=== PATIENT | female | born 1955 | race Two or more races ===

== ENCOUNTER 2021-12-13 15:23 | Emergency (ER) | payer MEDICARE, OTHER ==
[~2021-12-13] VITALS: Ht 154.9 cm; Wt 60.3 kg
--- NOTE | 2021-12-13 15:32 | NUR ---
PT BIBRA FROM AN URGENT CARE S/P LAB TEST AND WITH AN ABNORMAL PLT COUNT. PT DENIES PAIN/BLEEDING AND DISCOMFORT. STABLE VITALS. AWAITING MD GARZON.
[2021-12-13] MEDS ORDERED: LORA-259 PO (15:40)
[2021-12-13] MEDS ORDERED: LISI10TA29 PO (15:40)
--- NOTE | 2021-12-13 15:41 | NUR ---
DR EDOUARD AT BEDSIDE FOR EVAL
--- NOTE | 2021-12-13 16:05 | NUR ---
DIRECTOR OF PLACEMENT AT BEDSIDE FOR BLOOD DRAW.
[2021-12-13 16:22] LABS: BASOPHILS % (AUTO) 0.6 % (0.0-2.0); EOSINOPHILS % (AUTO) 3.3 % (0.0-6.0); HEMATOCRIT 38 % (33-45); HEMOGLOBIN 12.7 g/dL (11.5-14.8); LYMPHOCYTES # (AUTO) 1.1 K/uL (0.8-4.8); LYMPHOCYTES % (AUTO) 30.8 % (20.0-44.0); MEAN CORPUSCULAR HGB CONC 33 g/dl (31.0-36.0); MEAN CORPUSCULAR VOLUME 98 fL (82-100); MONOCYTES # (AUTO) 0.4 K/uL (0.1-1.30); MONOCYTES % (AUTO) 11.2 % (2.0-12.0); NEUTROPHILS # (AUTO) 1.9 K/uL (1.8-8.9); NEUTROPHILS % (AUTO) 54.1 % (43.0-81.0); PLATELET COUNT (AUTO) 75 K/uL (150-450); WHITE BLOOD COUNT (AUTO) 3.5 K/uL (4.3-11.0)
[2021-12-13 16:29] LABS: CALCIUM, SERUM 8.3 mg/dL (8.5-10.1); CREATININE 0.8 mg/dL (0.6-1.3); POTASSIUM 3.7 mmol/L (3.5-5.1)
[2021-12-13 17:14] LABS: BAND % (MANUAL) 1 % (0.0-5.0); EOSINOPHILS % (MANUAL) 1 % (0-4); LYMPHOCYTES % (MANUAL) 31 % (16-48); MONOCYTES % (MANUAL) 4 % (0-11.0); NEUTROPHILS % (MANUAL) 63 (42-76)
[2021-12-13] MEDS ORDERED: HYDROCODONE/APAP 5/325MG TABLET ONE (18:33)
[2021-12-13] MEDS: HYDROCODONE/APAP 5/325MG TABLET PO ONE (18:34)
[2021-12-13 19:00] VITALS: BP 128/77
--- NOTE | 2021-12-13 19:00 | NUR ---
Patient discharged to home in stable condition. Written and verbal after care instructions given. Patient verbalizes understanding of instruction.
== END 2021-12-13 19:25 | disposition home or self-care (01) ==
LOC: ER 19:16
DX: D69.6 Thrombocytopenia, unspecified (principal); G89.29 Other chronic pain; M54.50 Low back pain, unspecified; I10 Essential (primary) hypertension; Z79.899 Other long term (current) drug therapy
CPT/HCPCS: 36415; 80048-TC; 85025-TC; 85730-TC

== ENCOUNTER 2022-03-05 11:05 | Emergency (ER) | payer MEDICARE, OTHER ==
[~2022-03-05] VITALS: Ht 154.9 cm; Wt 59.0 kg
[~2022-03-05 11:05] MED LIST: LISI10TA29 PO; LORA-259 PO
--- NOTE | 2022-03-05 11:15 | NUR ---
[id number] FROM [facility] C/O ABDOMINAL PAIN P/S 10/12 X2DAYS +DIARRHEA, -NAUSEA AND VOMITING. PLACED ON BED, AAOX4, BREATHING EVEN AND UNLABORED.
[2022-03-05] MEDS ORDERED: HYDROCODONE/APAP 5/325MG TABLET PO ONE (11:30)
[2022-03-05] MEDS ORDERED: SULF1TAB48 PO (11:34)
[2022-03-05] MEDS ORDERED: HYDROCODONE/APAP 5/325MG TABLET ONE (11:54)
--- NOTE | 2022-03-05 12:55 | NUR ---
Patient discharged to home in stable condition. Written and verbal after care instructions given. Patient verbalizes understanding of instruction.
[2022-03-05 12:56] VITALS: BP 115/65
== END 2022-03-05 12:55 | disposition home or self-care (01) ==
LOC: ER 11:47
DX: N39.0 Urinary tract infection, site not specified (principal); I10 Essential (primary) hypertension; Z79.899 Other long term (current) drug therapy

== ENCOUNTER 2024-02-17 09:17 | Inpatient (IN) | payer MEDICARE, OTHER ==
[~2024-02-17] VITALS: Ht 157.5 cm; Wt 60.0 kg
[2024-02-17] VITALS (19 sets, daily range): BP systolic 107–142; BP diastolic 64–125; TEMP 95–98.7; O2SAT 94–99
[~2024-02-17 09:17] MED LIST changes: +SULF1TAB48 PO
[2024-02-17] MEDS: IV NS 0.9% 1,000 ML BAG IV ONE ×2 (09:40→11:32)
[2024-02-17] MEDS ORDERED: ONDANSETRON HCL/PF 4 MG/2 ML VIAL ONE ×2 (09:41→10:15)
[2024-02-17] MEDS ORDERED: OCTREOTIDE 50 MCG/ML AMPUL ONE (09:42)
[2024-02-17] MEDS: ONDANSETRON HCL/PF 4 MG/2 ML VIAL IVP ONE (09:45)
[2024-02-17] MEDS ORDERED: OCTREOTIDE 1,250 MCG in IV NS 0.9% 250 ML IV ONE (10:00)
[2024-02-17 10:03] LABS: BASOPHILS % (AUTO) 0.2 % (0.0-2.0); EOSINOPHILS % (AUTO) 0.3 % (0.0-6.0); HEMATOCRIT 24 % (33-45); HEMOGLOBIN 7.3 g/dL (11.5-14.8); LYMPHOCYTES # (AUTO) 1.1 K/uL (0.8-4.8); LYMPHOCYTES % (AUTO) 11.4 % (20.0-44.0); MEAN CORPUSCULAR HEMOGLOBIN 27 PG (26.0-33.0); MEAN CORPUSCULAR HGB CONC 31 g/dl (31.0-36.0); MEAN CORPUSCULAR VOLUME 89 fL (82-100); MONOCYTES # (AUTO) 0.6 K/uL (0.1-1.30); MONOCYTES % (AUTO) 5.9 % (2.0-12.0); NEUTROPHILS # (AUTO) 8.1 K/uL (1.8-8.9); NEUTROPHILS % (AUTO) 82.2 % (43.0-81.0); PLATELET COUNT (AUTO) 159 K/uL (150-450); RED BLOOD CELL COUNT(AUTO) 2.68 MIL/uL (4.0-5.2); RED CELL DISTRIBUTION WIDTH 19.2 % (11.5-15.0); WHITE BLOOD COUNT (AUTO) 9.9 K/uL (4.3-11.0)
[2024-02-17 10:14] LABS: INR 1.46 (0.91-1.10); PARTIAL THROMBOPLASTIN TIME 26.6 SEC (24.3-34.3); PROTHROMBIN TIME 15.1 SECS (9.2-11.1)
[2024-02-17] MEDS: OCTREOTIDE 50 MCG/ML AMPUL IV ONE (10:15)
[2024-02-17] MEDS: ONDANSETRON HCL/PF 4 MG/2 ML VIAL IV ONE (10:16)
[2024-02-17] MEDS: PANTOPRAZOLE 80 MG in IV NS 0.9% 100 ML IV ONE ×2 (10:19→12:50)
[2024-02-17] MEDS: OCTREOTIDE 1,250 MCG in IV NS 0.9% 247.5 ML IV ONE (10:19)
[2024-02-17] MEDS ORDERED: ACET-2030 PO (10:44)
[2024-02-17 10:58] LABS: ALBUMIN 2.1 g/dL (3.4-5.0); BILIRUBIN,DIRECT 0.7 mg/dL (0.0-0.2); BILIRUBIN,TOTAL 1.8 mg/dL (0.2-1.0); CALCIUM, SERUM 8.4 mg/dL (8.5-10.1); CREATININE 1.1 mg/dL (0.6-1.3); POTASSIUM 5.2 mmol/L (3.5-5.1); TOTAL PROTEIN, SERUM 6.6 g/dL (6.4-8.2)
[2024-02-17] MEDS ORDERED: ONDANSETRON HCL/PF 4 MG/2 ML VIAL IVP PRN (12:30)
[2024-02-17] MEDS ORDERED: ACETAMINOPHEN 325 MG TABLET PO PRN (12:30)
[2024-02-17] MEDS ORDERED: Z GUARD REMEDY 4 OZ OINT TP PRN (12:30)
[2024-02-17] MEDS ORDERED: CEFTRIAXONE 1GM BAG (ER ONLY) 50 ML IV ONE (12:33)
[2024-02-17] MEDS: CEFTRIAXONE 1GM BAG (ER ONLY) 1 GM/50 ML PIGGYBACK IV ONE (12:35)
[2024-02-17] MEDS: PANTOPRAZOLE 80 MG in IV NS 0.9% 500 ML IV PRN (13:06)
[2024-02-17] MEDS ORDERED: FUROSEMIDE 40 MG/4 ML VIAL ONE (13:08)
[2024-02-17] MEDS: FUROSEMIDE 40 MG/4 ML VIAL IV ONE (13:10)
[2024-02-17] MEDS ORDERED: ANESTHESIA TRAY IN PYXIS 1 EA TRAY MC ONE (15:44)
[2024-02-17] MEDS: OCTREOTIDE 1,250 MCG in IV NS 0.9% 247.5 ML IV PRN (16:12)
[2024-02-17] MEDS ORDERED: MIDAZOLAM HCL 2 MG/2ML VIAL ONE (16:12)
[2024-02-17] MEDS: IV LR 1000 ML 1,000 ML IV PRN (16:12)
[2024-02-17] MEDS: PANTOPRAZOLE 40 MG VIAL IV SCH (16:34)
[2024-02-17] MEDS: LORAZEPAM INJ 2 MG/ML VIAL IV PRN (19:31)
[2024-02-17 23:49] LABS: HEMOGLOBIN 9.4 g/dL (11.5-14.8)
[2024-02-18] VITALS (32 sets, daily range): BP systolic 125–159; BP diastolic 69–104; TEMP 98.4–98.9; O2SAT 93–99
[2024-02-18 05:06] LABS: BASOPHILS % (AUTO) 0.6 % (0.0-2.0); EOSINOPHILS # (AUTO) 0.1 K/uL (0.0-0.7); EOSINOPHILS % (AUTO) 1.6 % (0.0-6.0); HEMATOCRIT 27 % (33-45); HEMOGLOBIN 8.9 g/dL (11.5-14.8); LYMPHOCYTES % (AUTO) 19.9 % (20.0-44.0); MEAN CORPUSCULAR HEMOGLOBIN 29 PG (26.0-33.0); MEAN CORPUSCULAR HGB CONC 33 g/dl (31.0-36.0); MEAN CORPUSCULAR VOLUME 87 fL (82-100); MONOCYTES # (AUTO) 0.5 K/uL (0.1-1.30); MONOCYTES % (AUTO) 9.8 % (2.0-12.0); NEUTROPHILS # (AUTO) 3.5 K/uL (1.8-8.9); NEUTROPHILS % (AUTO) 68.1 % (43.0-81.0); PLATELET COUNT (AUTO) 81 K/uL (150-450); RED BLOOD CELL COUNT(AUTO) 3.11 MIL/uL (4.0-5.2); RED CELL DISTRIBUTION WIDTH 17.3 % (11.5-15.0); WHITE BLOOD COUNT (AUTO) 5.1 K/uL (4.3-11.0)
[2024-02-18 05:15] LABS: BILIRUBIN,TOTAL 2.4 mg/dL (0.2-1.0); CREATININE 0.9 mg/dL (0.6-1.3); MAGNESIUM 1.9 mg/dL (1.8-2.4); PHOSPHORUS 3.7 mg/dL (2.5-4.9); POTASSIUM 4.2 mmol/L (3.5-5.1)
[2024-02-18 05:27] LABS: ANISOCYTOSIS 1+; BASOPHILS % (MANUAL) 0 % (0.0-2.0); EOSINOPHILS % (MANUAL) 2 % (0-4); LYMPHOCYTES % (MANUAL) 17 % (16-48); MONOCYTES % (MANUAL) 10 % (0-11.0); NEUTROPHILS % (MANUAL) 71 (42-76); PLATELET ESTIMATE DECREASED
[2024-02-18] MEDS ORDERED: CEPHALEXIN MONOHYDRATE 250 MG/5 ML BOTTLE PO SCH (13:30)
[2024-02-18] MEDS: CEPHALEXIN MONOHYDRATE 500 MG CAPSULE PO SCH (14:50)
== END 2024-02-18 20:20 | disposition left against medical advice (07) | DRG 432 ==
LOC: ER 09:37 → ICU 14:24
PROVIDERS: ADMIT Nurse Practitioner Acute Care; ATTEND Nurse Practitioner Acute Care
PROC: 30233N1 Transfusion of Nonautologous Red Blood Cells into Peripheral Vein, Percutaneous Approach (ICD-10-PCS; principal; 2024-02-17)
DX: K74.69 Other cirrhosis of liver (principal); I85.11 Secondary esophageal varices with bleeding; D62 Acute posthemorrhagic anemia; K76.6 Portal hypertension; R18.8 Other ascites; D68.9 Coagulation defect, unspecified; E72.4 Disorders of ornithine metabolism; D69.6 Thrombocytopenia, unspecified; E87.5 Hyperkalemia; E88.09 Other disorders of plasma-protein metabolism, not elsewhere classified; G89.29 Other chronic pain; I10 Essential (primary) hypertension; Z87.440 Personal history of urinary (tract) infections; Z20.822 Contact with and (suspected) exposure to COVID-19; E80.6 Other disorders of bilirubin metabolism; R74.01 Elevation of levels of liver transaminase levels; Z53.20 Procedure and treatment not carried out because of patient's decision for unspecified reasons
CPT/HCPCS: 36415; 71045-TC; 80048-TC; 80053-TC; 80076-TC; 82140-TC; 83540-TC; 83690-TC; 83735-TC; 84100-TC; 85025-TC; 85027-TC; 85730-TC; 86850-TC; A4223; G0378; G0480; J0696; J1940; J2060; J2250; J2354; J2405; J2470; J2704; J3490; J7030; J7040; J7050; J7120; P9016